=== PATIENT | male | born 1965 | race American Indian/Alaskan Native ===

== ENCOUNTER 2019-04-15 19:04 | Emergency (ER) | payer BC, OTHER ==
[2019-04-15] MEDS ORDERED: NACL 0.9% 1000 ML 1,000 ML IV ONE (19:10)
--- NOTE | 2019-04-15 19:14 | Emergency Department Report ---
HPI - General Time Seen by Provider: 04/15/19 19:07 - HPI HPI: Room 2 The patient is a 53-year-old male presenting with a chief complaint of suicidal ideation/overdose. Patient was brought in by a friend after an intentional overdose. Patient states he does not know the name of the medications as they were not his. Patient states he took 3 of her medications approximately 17:00. Patient is a poor historian and requires frequent sternal rubs to awaken so that he can answer questions. Location: [See above] Duration: [See above] Quality: [See above] Severity: [See above] Modifying factors: [see above] Context: [see above] Mode of transportation: [not driving] ED Past Medical Hx - Surgical History Additional Surgical History: l knee surgury 2009 - Family History Family history: no significant - Social History Smoking Status: Current Every Day Smoker Substance Use Type: None - Medications Home Medications: Home Medications Medication Instructions Recorded Confirmed Last Taken Type No Known Home Medications [No 04/16/19 04/16/19 Unknown History Reported Home Medications] ED Review of Systems ROS: Stated complaint: POSS OD Other details as noted in HPI Comment: Unobtainable due to pts medical conditions Physical Exam - Physical Exam Physical Exam: GENERAL: The patient is well-developed well-nourished male lying on stretcher appearing lethargic/intoxicated. [] HEENT: Normocephalic. Atraumatic. Extraocular motions are intact. Patient has moist mucous membranes. NECK: Supple. Trachea midline CHEST/LUNGS: Clear to auscultation. There is no respiratory distress noted. HEART/CARDIOVASCULAR: Regular. There is no tachycardia. There is no gallop rub or murmur. ABDOMEN: Abdomen is soft, nontender. Patient has normal bowel sounds. There is no abdominal distention. SKIN: There is no rash. There is no edema. There is no diaphoresis. NEURO: The patient is awake but lethargic/intoxicated. The patient is intermittently cooperative cooperative. The patient has no focal neurologic deficits. The patient has normal speech MUSCULOSKELETAL: There is no evidence of acute injury. 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 Add Manual Diff Complete Total Counted 100 Seg Neutrophils % Senior Chemical Process Engineer Seg Neuts % (Manual) 30.0 L Band Neutrophils % 0 Lymphocytes % (Manual) 57.0 H Reactive Lymphs % (Man) 0 Monocytes % (Manual) 11.0 H Eosinophils % (Manual) 2.0 Basophils % (Manual) 0 Metamyelocytes % 0 Myelocytes % 0 Promyelocytes % 0 Blast Cells % 0 Nucleated RBC % Not Reportable Seg Neutrophils # Man 1.4 L Band Neutrophils # 0.0 Lymphocytes # (Manual) 2.7 Abs React Lymphs (Man) 0.0 Monocytes # (Manual) 0.5 Eosinophils # (Manual) 0.1 Basophils # (Manual) 0.0 Metamyelocytes # 0.0 Myelocytes # 0.0 Promyelocytes # 0.0 Blast Cells # 0.0 WBC Morphology Not Reportable Hypersegmented Neuts Not Reportable Hyposegmented Neuts Not Reportable Hypogranular Neuts Not Reportable Smudge Cells Not Reportable Toxic Granulation Not Reportable Toxic Vacuolation Not Reportable Dohle Bodies Not Reportable Pelger-Huet Anomaly Not Reportable Kelley Rods Not Reportable Platelet Estimate Consistent w auto Clumped Platelets Not Reportable Plt Clumps, EDTA Not Reportable Large Platelets 1+ Giant Platelets Not Reportable Platelet Satelliting Not Reportable Plt Morphology Comment Not Reportable RBC Morphology Normal Dimorphic RBCs Not Reportable Polychromasia Not Reportable Hypochromasia Not Reportable Poikilocytosis Not Reportable Anisocytosis Not Reportable Microcytosis Not Reportable Macrocytosis Not Reportable Spherocytes Not Reportable Pappenheimer Bodies Not Reportable Sickle Cells Not Reportable Target Cells Not Reportable Tear Drop Cells Not Reportable Ovalocytes Not Reportable Helmet Cells Not Reportable [place] Bodies Not Reportable [place] Rings Not Reportable Jc Cells Not Reportable Bite Cells Not Reportable Crenated Cell Not Reportable Elliptocytes Not Reportable Acanthocytes (Spur) Not Reportable Rouleaux Not Reportable Hemoglobin C Crystals Not Reportable Schistocytes Not Reportable Malaria parasites Not Reportable Ba Bodies Not Reportable Hem Pathologist Commnt No PT 12.8 INR 0.99 APTT 24.6 Sodium 146 H Potassium 3.6 Chloride 105.7 Carbon Dioxide 25 Anion Gap 19 BUN 8 L Creatinine 0.7 L Estimated GFR > 60 BUN/Creatinine Ratio 11 Glucose 97 Calcium 8.9 Total Bilirubin 0.20 AST 30 ALT 24 Alkaline Phosphatase 92 Total Creatine Kinase 174 H CK-MB (CK-2) 1.5 CK-MB (CK-2) Rel Index 0.8 Troponin T < 0.010 Total Protein 7.0 Albumin 4.7 Albumin/Globulin Ratio 2.0 TSH Free T4 Salicylates Urine Opiates Screen Urine Methadone Screen Acetaminophen Ur Barbiturates Screen Ur Phencyclidine Scrn Ur Amphetamines Screen U Benzodiazepines Scrn Urine Cocaine Screen U Marijuana (THC) Screen Drugs of Abuse Note Plasma/Serum Alcohol 04/15/19 04/15/19 04/15/19 19:13 19:13 19:13 WBC RBC Hgb Hct MCV MCH MCHC RDW Plt Count Lymph % (Auto) Add Manual Diff Total Counted Seg Neutrophils % Seg Neuts % (Manual) Band Neutrophils % Lymphocytes % (Manual) Reactive Lymphs % (Man) Monocytes % (Manual) Eosinophils % (Manual) Basophils % (Manual) Metamyelocytes % Myelocytes % Promyelocytes % Blast Cells % Nucleated RBC % Seg Neutrophils # Man Band Neutrophils # Lymphocytes # (Manual) Abs React Lymphs (Man) Monocytes # (Manual) Eosinophils # (Manual) Basophils # (Manual) Metamyelocytes # Myelocytes # Promyelocytes # Blast Cells # WBC Morphology Hypersegmented Neuts Hyposegmented Neuts Hypogranular Neuts Smudge Cells Toxic Granulation Toxic Vacuolation Dohle Bodies Pelger-Huet Anomaly Kelley Rods Platelet Estimate Clumped Platelets Plt Clumps, EDTA Large Platelets Giant Platelets Platelet Satelliting Plt Morphology Comment RBC Morphology Dimorphic RBCs Polychromasia Hypochromasia Poikilocytosis Anisocytosis Microcytosis Macrocytosis Spherocytes Pappenheimer Bodies Sickle Cells Target Cells Tear Drop Cells Ovalocytes Helmet Cells [place] Bodies [place] Rings [place] Cells Bite Cells Crenated Cell Elliptocytes Acanthocytes (Spur) Rouleaux Hemoglobin C Crystals Schistocytes Malaria parasites Ba Bodies Hem Pathologist Commnt PT INR APTT Sodium Potassium Chloride Carbon Dioxide Anion Gap BUN Creatinine Estimated GFR BUN/Creatinine Ratio Glucose Calcium Total Bilirubin AST ALT Alkaline Phosphatase Total Creatine Kinase CK-MB (CK-2) CK-MB (CK-2) Rel Index Troponin T Total Protein Albumin Albumin/Globulin Ratio TSH Free T4 Salicylates < 0.3 L Urine Opiates Screen Urine Methadone Screen Acetaminophen < 5.0 L Ur Barbiturates Screen Ur Phencyclidine Scrn Ur Amphetamines Screen U Benzodiazepines Scrn Urine Cocaine Screen U Marijuana (THC) Screen Drugs of Abuse Note Plasma/Serum Alcohol 0.35 H 04/15/19 04/15/19 19:13 21:40 WBC RBC Hgb Hct MCV MCH MCHC RDW Plt Count Lymph % (Auto) Add Manual Diff Total Counted Seg Neutrophils % Seg Neuts % (Manual) Band Neutrophils % Lymphocytes % (Manual) Reactive Lymphs % (Man) Monocytes % (Manual) Eosinophils % (Manual) Basophils % (Manual) Metamyelocytes % Myelocytes % Promyelocytes % Blast Cells % Nucleated RBC % Seg Neutrophils # Man Band Neutrophils # Lymphocytes # (Manual) Abs React Lymphs (Man) Monocytes # (Manual) Eosinophils # (Manual) Basophils # (Manual) Metamyelocytes # Myelocytes # Promyelocytes # Blast Cells # WBC Morphology Hypersegmented Neuts Hyposegmented Neuts Hypogranular Neuts Smudge Cells Toxic Granulation Toxic Vacuolation Dohle Bodies Pelger-Huet Anomaly Kelley Rods Platelet Estimate Clumped Platelets Plt Clumps, EDTA Large Platelets Giant Platelets Platelet Satelliting Plt Morphology Comment RBC Morphology Dimorphic RBCs Polychromasia Hypochromasia Poikilocytosis Anisocytosis Microcytosis Macrocytosis Spherocytes Pappenheimer Bodies Sickle Cells Target Cells Tear Drop Cells Ovalocytes Helmet Cells [place] Bodies [place] Rings Jc Cells Bite Cells Crenated Cell Elliptocytes Acanthocytes (Spur) Rouleaux Hemoglobin C Crystals Schistocytes Malaria parasites Ba Bodies Hem Pathologist Commnt PT INR APTT Sodium Potassium Chloride Carbon Dioxide Anion Gap BUN Creatinine Estimated GFR BUN/Creatinine Ratio Glucose Calcium Total Bilirubin AST ALT Alkaline Phosphatase Total Creatine Kinase CK-MB (CK-2) CK-MB (CK-2) Rel Index Troponin T Total Protein Albumin Albumin/Globulin Ratio TSH 1.250 Free T4 1.15 Salicylates Urine Opiates Screen Presumptive negative Urine Methadone Screen Presumptive negative Acetaminophen Ur Barbiturates Screen Presumptive negative Ur Phencyclidine Scrn Presumptive negative Ur Amphetamines Screen Presumptive negative U Benzodiazepines Scrn Presumptive negative Urine Cocaine Screen Presumptive negative U Marijuana (THC) Screen Presumptive negative Drugs of Abuse Note Disclamer Plasma/Serum Alcohol - EKG Data -: EKG Interpreted by Me EKG shows normal: sinus rhythm Rate: bradycardia (57 bpm) - EKG Data When compared to previous EKG there are: previous EKG unavailable Interpretation: other (no ischemic changes seen) 04/16/19 01:18 EKG #2 04/16/2019 at 01:15 reveals normal sinus rhythm at 69 bpm. QRS 100 - Differential Diagnosis suicidal ideation, overdose Critical care attestation.: If time is entered above; I have spent that time in minutes in the direct care of this critically ill patient, excluding procedure time. ED Disposition Clinical Impression: Suicidal ideation, Suicide attempt by ingestion of unknown substance Disposition: [id number]/TX-65 PSY HOSP/PSY UNIT Is pt being admited?: No Does the pt Need Aspirin: No Condition: Serious Referrals: RENETTA VARGAS MD [Primary Care Provider] - 3-5 Days
--- NOTE | 2019-04-15 19:15 | Event Note ---
ED Screening Note ED Screening Note: PT RECENTLY TOLD HE HAD LUPUS AND WOULD NOT LIVE A YEAR TOOK ? MEDS TO ER WITH FRIEND PT UNRESPONSIVE IN CAR TO MAIN ED This initial assessment/diagnostic orders/clinical plan/treatment(s) is/are subject to change based on patients health status, clinical progression and re- assessment by fellow clinical providers in the ED. Further treatment and workup at subsequent clinical providers discretion. Patient/guardian urged not to elope from the ED as their condition may be serious if not clinically assessed and managed. Initial orders include:
[2019-04-15 19:27] LABS: Hematocrit 46.1 % (35.5-45.6); Hemoglobin 15.7 gm/dl (11.8-15.2); Mean Corpuscular HGB Conc 34 % (32-34); Mean Corpuscular Volume 91 fl (84-94); Platelet Count 284 K/mm3 (140-440); Red Blood Count 5.09 M/mm3 (3.65-5.03); Red Cell Distribution Width 16.3 % (13.2-15.2)
[2019-04-15 19:38] LABS: INR 0.99 (0.87-1.13)
[2019-04-15 19:39] LABS: Partial Thromboplastin Time 24.6 Sec. (24.2-36.6)
[2019-04-15 19:44] LABS: Creatine Kinase MB 1.5 ng/mL (0.0-4.0)
[2019-04-15 19:47] LABS: Alanine Aminotransferase 24 units/L (7-56); Albumin 4.7 g/dL (3.9-5); BUN/Creatinine Ratio 11; Blood Urea Nitrogen 8 mg/dL (9-20); Calcium 8.9 mg/dL (8.4-10.2); Hemolysis Index 16
[2019-04-15] MEDS ORDERED: MAGNESIUM SULFATE 2GM/50ML 2 GM/50 ML BAG IV ONE (19:51)
[2019-04-15] MEDS ORDERED: VITAMIN B-1 100 MG, FOLVITE 1 MG, INFUVITE 10 ML in NACL 0.9% 1000 ML 1,000 ML IV ONE (19:51)
[2019-04-15 19:54] LABS: Free T4 (Free Thyroxine) 1.15 ng/dL (0.76-1.46)
[2019-04-15 22:01] LABS: Amphetamine Screen,Urine PRESUMPTIVE NEGATIVE; Benzodiazepines Screen,Urine PRESUMPTIVE NEGATIVE; Cannabinoid Screen,Urine PRESUMPTIVE NEGATIVE; Cocaine Screen,Urine PRESUMPTIVE NEGATIVE; Methadone Screen,Urine PRESUMPTIVE NEGATIVE; Opiate Screen,Urine PRESUMPTIVE NEGATIVE
[2019-04-15 22:06] LABS: Basophils % (Manual) 0 % (0.0-1.8); Large Platelets 1+; RBC Morphology Normal; Total Cells Counted 100
[2019-04-15 22:07] LABS: Platelet Estimate Consistent w Auto
--- NOTE | 2019-04-16 14:27 | Consultation ---
History of Present Illness - Reason for Consult Consult date: 04/16/19 Reason for consult: Initial Psychiatric Evaluation - Chief Complaint Chief complaint: " I drunk too much " - History of Present Psychiatric Illness Patient is a 53-year-old male who presents to the emergency room with a chief complaint of suicidal ideation/overdose. Patient was brought in by a friend after an intentional overdose. Patient states he does not know the name of the medications as they were not his. Patient states he took 3 of his friend pills at approximately 17:00. Today the patient is calm and cooperative during the assessment. He states, " I've been depressed. I lost my job 5 months ago. I started a new a job and it doesn't pay as much. Yesterday, I begin to drink and it was too much." Throughout the assessment patient attempts to minimize symptoms. Patient denies anhedonia, decrease energy, decrease appetite, and decrease sleep. Patient denies SI/HI's, A/VH's, and delusions. Current Psychiatric Medications: Patient denies. Past Psychiatric History: No past psychiatric diagnosis; no previous inpatient psychiatric hospitalizations; no outpatient psychiatrist; no previous suicide attempts. History of Drug/Alcohol Abuse: Alcohol-once a week, last drink 04-15-19, first drink -age 21. UDS negative. Serum alcohol 0.05. History of Trauma/Abuse: Patient denies hx of trauma. Patient denies sexual, physical, and mental abuse. Social History: High School Diploma; Lives with ; 3 daughters ( 31, 27, 22); employed - [employer]; no pending legal issues. Family History of Psychiatric Illness: Patient denies. Medications and Allergies Allergies Allergy/AdvReac Type Severity Reaction Status Date / Time No Known Allergies Allergy Unverified 04/19/14 11:49 Home Medications Medication Instructions Recorded Confirmed Last Taken Type No Known Home Medications [No 04/16/19 04/16/19 Unknown History Reported Home Medications] Mental Status Exam - Vital signs Last Vital Signs Temp 97.3 F L 04/15/19 19:09 Pulse 51 L 04/16/19 06:26 Resp 12 04/16/19 06:26 BP 132/86 04/16/19 06:26 Pulse Ox 98 04/16/19 06:26 - Exam Narrative exam: Mental Status Exam: Appearance: calm, cooperative- green hospital scrubs Behavior: intermittent eye contact Speech: regular rate and tone Mood: " better" ; depressed, anxious Affect: constricted Thought Process: circumstantial Thought Content: denies SI/HI's, AVH's, and delusions Motor Activity: ambulatory Cognition: A/O x 3 Insight: variable Judgment: variable Results Result Diagrams: 04/15/19 19:13 04/15/19 19:13 Abnormal lab results 04/15/19 04/15/19 04/15/19 Range/Units 19:13 19:13 19:13 RBC 5.09 H (3.65-5.03) M/mm3 Hgb 15.7 H (11.8-15.2) gm/dl Hct 46.1 H (35.5-45.6) % RDW 16.3 H (13.2-15.2) % Seg Neuts % (Manual) 30.0 L (40.0-70.0) % Lymphocytes % (Manual) 57.0 H (13.4-35.0) % Monocytes % (Manual) 11.0 H (0.0-7.3) % Seg Neutrophils # Man 1.4 L (1.8-7.7) K/mm3 Sodium 146 H (137-145) mmol/L BUN 8 L (9-20) mg/dL Creatinine 0.7 L (0.8-1.5) mg/dL Total Creatine Kinase 174 H (55-170) units/L Salicylates < 0.3 L (2.8-20.0) mg/dL Acetaminophen (10.0-30.0) ug/mL Plasma/Serum Alcohol (0-0.07) % 04/15/19 04/15/19 04/16/19 Range/Units 19:13 19:13 06:01 RBC (3.65-5.03) M/mm3 Hgb (11.8-15.2) gm/dl Hct (35.5-45.6) % RDW (13.2-15.2) % Seg Neuts % (Manual) (40.0-70.0) % Lymphocytes % (Manual) (13.4-35.0) % Monocytes % (Manual) (0.0-7.3) % Seg Neutrophils # Man (1.8-7.7) K/mm3 Sodium (137-145) mmol/L BUN (9-20) mg/dL Creatinine (0.8-1.5) mg/dL Total Creatine Kinase (55-170) units/L Salicylates (2.8-20.0) mg/dL Acetaminophen < 5.0 L (10.0-30.0) ug/mL Plasma/Serum Alcohol 0.35 H 0.18 H (0-0.07) % All other labs normal. Assessment and Plan Assessment and plan: Impression: MDD, single episode, without psychosis. Today the patient is calm and cooperative during the assessment. He denies SI/HI's, A/VH's, and delusions. Recommendation/Plan: 1. Continue 1013. Will reevaluate 1013 in 24 hours. 2. Patient refuses medication at this time. He prefers talk therapy. Disposition: If patient's 1013 is rescinded on 04/17/19 patient is to follow-up at the [facility]. Will staff with Dr Georgette Bush.
[2019-04-17 08:32] VITALS: BP 148/84
--- NOTE | 2019-04-17 11:17 | Progress Note ---
Subjective - Reason for Consult Consult date: 04/17/19 Reason for consult: Psychiatry Follow-up - Chief Complaint Chief complaint: "I made a stupid decision" 53-year-old male who presents to the emergency room with a chief complaint of suicidal ideation/overdose. Today the patient is calm and cooperative during the assessment. He stated that he made a stupid decision to take 2 Tylenol pills and consume alcohol (etoh). He is adamant that he was tired from working 2 jobs and wanted to get some rest. He denies that he have attempted to hurt himself in the past. He stated that he is dealing with stress, but feel like things will get better. Per collateral information from his Vikas Ma at [phone], she stated that her didn't try to kill himself. She confirmed that he had not slept because he work 2 jobs. She stated that the patient can return home once discharged. The patient denies SI/HI's and AVH's. Mental Status Exam - Vital signs Last Vital Signs Temp 98.2 F 04/17/19 08:00 Pulse 58 L 04/17/19 08:00 Resp 18 04/17/19 08:00 BP 148/84 04/17/19 08:00 Pulse Ox 100 04/17/19 08:00 - Exam Narrative exam: MSE: Appearance: calm, cooperative Behavior: regular eye contact Speech: regular rate and tone Mood: "okay" Affect: congruent to mood Thought Process: linear Thought Content: denies SI/HI's and AVH's Motor Activity: sitting up in the bed Cognition: A/O x 3 Insight: appropriate Judgment: appropriate Assessment and Plan Impression: MDD, single episode. Alcohol Use DO. Today the patient was calm and cooperative during the assessment. The patient is no threat to self. No acute withdrawals noted (etoh). DDx: Adjustment DO Recommendation/Plan: Rescind 1013. Discussed risk/benefits of antidepressants w ith the patient, he prefer talk therapy at this time. Discussed the importance not to mix medications with alcohol (etoh), he verbalized understanding. Dispo: The patient can follow up with [facility] for outpatient psy/rehab/therapy services. Will staff with Dr Georgette Bush.
== END 2019-04-17 12:37 | disposition home or self-care (01) ==
LOC: ED 19:04 → EEVIPCON 19:04 → ED 04-17 12:37
DX: T50.902A Poisoning by unspecified drugs, medicaments and biological substances, intentional self-harm, initial encounter (principal); F32.9 Major depressive disorder, single episode, unspecified; F17.200 Nicotine dependence, unspecified, uncomplicated; Y92.89 Other specified places as the place of occurrence of the external cause
CPT/HCPCS: 36415; 80053; 80307; 82550; 82553; 82962; 84439; 84443; 84484; 85007; 85025; 85610; 85730; 93005; 93010; G0480; J3411; J3475; J7030; 80320; 96365; 96367